=== PATIENT | male | born 1965 | race Caucasian/White ===

== ENCOUNTER → 2017-05-10 | Day surgery (SDC) | payer MEDICAID ==
[~2017-05-10] VITALS: Ht 182.9 cm; Wt 92.1 kg
[~2017-05-10] MED LIST: AZITHROMYCIN250 MG PO; CELEBREX 100MG100 MG PO; COZAAR 50 MG TA50 MG PO; DILAUDID2 MG IT; FLOMAX 0.4MG C0.4 MG PO; HYDROCODONE BIT1 T39 PO; HYDROCODONE-APA1 TA1 PO; MECLIZINE HYDRO25 MG PO; PREDNISONE20 MG PO; PROMETHAZINE HC25 M1 PO; QUETIAPINE FUMA25 MG PO; RANITIDINE HCL150 MG PO; SERTRALINE25 MG PO; SIMVASTATIN20 MG PO; VENTOLIN H0.09 MG/AC IH; VITAMIN D31000 IU PO
[2017-05-10 14:40] VITALS: BP 142/85
[2017-05-10 15:03] VITALS: BP 142/85
[2017-05-10 15:04] VITALS: BP 130/65
--- NOTE | 2017-05-10 15:24 | Procedure Note ---
Procedure detail Date of procedure: 05/10/17 Anesthesiologist: Florencio Miner Complications: None Pre-procedure diagnosis: Degenerative disc disease lumbar spine multiple levels. Lumbar radiculopathy symptoms. Lumbar postlaminectomy syndrome. Post-procedure diagnosis: Same. Indications for procedure: Very pleasant 51-year-old white male returns our procedure clinic today for intrathecal pain pump refill. His pump currently has hydromorphone 1 mg/mL at a rate of 0.125 mg per day. Doing very well his current rate. He reports his pain is lumbar spine area as well as bilateral hip and leg pain is 90 percent improved since the pump was installed. Procedure detail: Details of the procedure were expected to the patient. The patient was taken to procedure room and placed in the sitting position. The area over the pump was cleansed using chlorhexidine as a cleansing solution. The pump was accessed with ease using a 22-gauge needle from the refill kit. 9 mL of solution was withdrawn and discarded properly. The pump was then filled with 20 mL of hydromorphone 1 mg/mL. The pump was then interrogated. The rate was continued at 0.125 mg per day. Objective: Patient is awake alert oriented 3. In no acute distress. Flexion extension lumbar spine somewhat guarded secondary to pain. Deep tendon reflexes upper lower extremities normal. Motor strength upper lower extremities normal. There is no gross sensory deficit. Gait is normal. Positive straight leg raise test at 30 degrees bilaterally. Plan and disposition: Patient was reevaluated 10 minutes post procedure. He is doing very well. He'll return to see us as next refill date. The patient was encouraged to give us a call if indeed he had any problems or issues. at [id number]
[2017-05-10 15:44] VITALS: BP 122/77
[2017-05-10 18:42] LABS: AMPHETAMINES/METAMPHETAMINES NEGATIVE ng/mL (<1000)
== END ==
LOC: PM 14:26 → LAB 14:26 → PM 05-24 13:30
PROVIDERS: Nurse Anesthetist, Certified Registered
DX: M51.16 Intervertebral disc disorders with radiculopathy, lumbar region (principal); M96.1 Postlaminectomy syndrome, not elsewhere classified

== ENCOUNTER → 2017-08-09 | Day surgery (SDC) | payer MEDICAID ==
[~2017-08-09] VITALS: Ht 182.9 cm; Wt 89.8 kg
[2017-08-09 13:41] VITALS: BP 107/83
[2017-08-09 13:56] VITALS: BP 107/83
[2017-08-09 13:57] VITALS: BP 149/67
--- NOTE | 2017-08-09 14:05 | Procedure Note ---
Procedure detail Date of procedure: 08/09/17 Anesthesiologist: Florencio Miner Complications: None Pre-procedure diagnosis: Degenerative disease lumbar spine. Lumbar postlaminectomy syndrome. Lumbar radiculopathy symptoms. Post-procedure diagnosis: Same. Indications for procedure: Very pleasant 51-year-old white male comes our clinic today for intrathecal pain pump adjustment. His pump currently contains hydromorphone 1 mg/mL. His rate is 0.15 mg per day. He's having increased pain in his lumbar spine as well as bilateral hip and leg pain. Patient describes pain as constant, dull, aching. He rates the pain 5/10. We will interrogate his pump today and increase his rate to 0.17 mg per day. PTC will remain at 0.015 mg 4 times a day. Objective: Patient is awake alert oriented 3. In no acute distress. Flexion extension lumbar spine somewhat guarded secondary to pain. Deep tendon reflexes upper lower extremities normal. Motor strength upper lower extremities normal. There is no gross sensory deficit. Gait is normal. Positive straight leg raise test at 30 degrees bilaterally. Procedure detail: Details of procedure is going to the patient. The patient was taken to procedure room placed in sitting position. The area over the pump was cleansed using chlorhexidine as cleansing solution. The pump was accessed of lesion a 22-gauge needle for the refill kit. 6 Millers of solution was withdrawn and discarded appropriate. The pump was infiltrated 20 mL morphine sulfate 1 mg/mL. The pump was interrogated and the rate was increased to 0.17 mg per day. The PTC will remain unchanged at 0.015 mg 4 times a day per Plan and disposition: Patient was evaluated to minutes post procedure. He is doing very well. Her be discharged home. at [id number]
[2017-08-09 14:30] VITALS: BP 126/80
== END ==
LOC: PM 13:27
DX: M51.16 Intervertebral disc disorders with radiculopathy, lumbar region (principal); M96.1 Postlaminectomy syndrome, not elsewhere classified